=== PATIENT | female | born 1965 | race Caucasian/White ===

== ENCOUNTER 2016-11-21 13:07 | Emergency (ER) | payer SELFPAY ==
[~2016-11-21 13:07] MED LIST: Sodium Chloride 0.9% 100 ML BAG ONE
[2016-11-21] MEDS ORDERED: methylPREDNISolone Sod Succ/PF 125 MG/2 ML VIAL ONE (14:01)
[2016-11-21] MEDS ORDERED: Dexamethasone 10 MG/ML VIAL ONE (14:01)
[2016-11-21] MEDS ORDERED: Clindamycin/D5W 600 mg/50 ml Premix Bag ONE (14:01)
[2016-11-21 14:11] LABS: #Basophils 0.1 thou/uL (0.0-0.2); #Lymphocytes 3.4 thou/uL (1.20-3.40); #Monocytes 0.6 thou/uL (0.11-0.59); #Neutrophils 4.9 thou/uL (1.40-6.50); %Basophils 1.4 % (0.0-1.0); %Eosinophils 0.5 % (0.0-10.0); %Lymphocytes 37.5 % (21.0-51.0); %Monocytes 6.1 % (0.0-10.0); %Neutrophils 54.5 % (42.0-75.0); Hemoglobin 16.1 g/dL (12.0-16.0); Mean Corpuscular HGB CONC 34.2 g/dL (32.0-36.0); Mean Corpuscular Hemoglobin 29.8 pg (27.0-31.0); Mean Corpuscular Volume 87.2 fl (81.0-99.0); Mean Platelet Volume 7.9 fL (7.4-10.4); Platelet Count 356 thou/uL (130-400); RBC Distribution Width 11.2 % (11.5-14.5)
[2016-11-21 14:23] LABS: ALT (SGPT) 19 U/L (0-55); AST (SGOT) 15 U/L (5-34); Albumin 4.3 g/dL (3.5-5.0); Alkaline Phosphatase 95 U/L (40-150); Anion Gap 14 mmol/L (10-20); BUN (Urea Nitrogen) 16 mg/dL (9.8-20.1); Bilirubin, Total 1.1 mg/dL (0.2-1.2); CK (CPK) 107 U/L (29-168); Calc. Creatinine Clearance 0 mL/min (70-130); Carbon Dioxide 27 mmol/L (22-29); Chloride 103 mmol/L (98-107); Estimated GFR-MDRD 66; Globulin 3.4 g/dL (2.4-3.5); Glucose 122 mg/dL (70-105); Potassium 3.3 mmol/L (3.5-5.1); Protein, Total 7.7 g/dL (6.0-8.3); Sodium 141 mmol/L (136-145)
[2016-11-21 14:24] LABS: CKMB 1.1 ng/mL (0-6.6)
--- NOTE | 2016-11-21 16:05 | RAD ---
PA AND LATERAL VIEWS OF THE CHEST 11/21/16 HISTORY: Cough. COMPARISON: 11/21/13 FINDINGS: The heart size is normal. The lungs are expanded without focal areas of consolidation, pneumothorax or pleural effusions. Surgical hardware in the cervical spine on the right is again seen. IMPRESSION: No radiographic evidence of acute cardiopulmonary process. POS: [facility]
== END 2016-11-21 16:53 | disposition home or self-care (01) ==
LOC: MADERS 13:07
DX: J20.9 Acute bronchitis, unspecified (principal); E03.9 Hypothyroidism, unspecified; E78.5 Hyperlipidemia, unspecified; E78.00 Pure hypercholesterolemia, unspecified; I10 Essential (primary) hypertension; Z87.442 Personal history of urinary calculi; Z79.82 Long term (current) use of aspirin; Z79.899 Other long term (current) drug therapy
CPT/HCPCS: 71020; 80053; 82550; 82553; 83880; 84484; 85025; 85379; 87040; 93005; 94640; 94760; 96365; 96375; J1100; J2930; J3490; J7050; J7620

== ENCOUNTER 2016-12-09 16:01 | Emergency (ER) | payer SELFPAY ==
[2016-12-09 16:59] LABS: #Basophils 0.1 thou/uL (0.0-0.2); #Eosinphils 0.1 thou/uL (0.0-0.7); #Lymphocytes 2.5 thou/uL (1.20-3.40); #Monocytes 0.5 thou/uL (0.11-0.59); #Neutrophils 3.5 thou/uL (1.40-6.50); %Basophils 1.4 % (0.0-1.0); %Eosinophils 1.4 % (0.0-10.0); %Lymphocytes 37.6 % (21.0-51.0); %Monocytes 7.1 % (0.0-10.0); %Neutrophils 52.5 % (42.0-75.0); Hemoglobin 12.9 g/dL (12.0-16.0); Mean Corpuscular HGB CONC 33.8 g/dL (32.0-36.0); Mean Corpuscular Hemoglobin 30.8 pg (27.0-31.0); Mean Corpuscular Volume 91.1 fl (81.0-99.0); Mean Platelet Volume 8.2 fL (7.4-10.4); Platelet Count 237 thou/uL (130-400); RBC Distribution Width 12.1 % (11.5-14.5); White Blood Cell (WBC) Count 6.7 thou/uL (4.8-10.8)
[2016-12-09 17:20] LABS: ALT (SGPT) 23 U/L (0-55); AST (SGOT) 20 U/L (5-34); Albumin 3.8 g/dL (3.5-5.0); Alkaline Phosphatase 76 U/L (40-150); Anion Gap 14 mmol/L (10-20); BUN (Urea Nitrogen) 15 mg/dL (9.8-20.1); Bilirubin, Total 0.5 mg/dL (0.2-1.2); Calc. Creatinine Clearance 0 mL/min (70-130); Calcium 9.2 mg/dL (7.8-10.44); Carbon Dioxide 24 mmol/L (22-29); Chloride 108 mmol/L (98-107); Estimated GFR-MDRD 72; Globulin 2.6 g/dL (2.4-3.5); Glucose 84 mg/dL (70-105); Potassium 3.6 mmol/L (3.5-5.1); Protein, Total 6.4 g/dL (6.0-8.3); Sodium 142 mmol/L (136-145)
[2016-12-09 17:21] LABS: CKMB 1.1 ng/mL (0-6.6); Troponin I Less than 0.010 ng/mL (< 0.028)
--- NOTE | 2016-12-09 17:26 | RAD ---
PORTABLE CHEST ONE VIEW: Date: 12-09-16 Time: 4:42 p.m. History: Chest pain. FINDINGS: Comparison is made with exam of 11-21-16. The heart size appears magnified due to projection. The lungs are well expanded without focal areas of consolidation, pneumothorax, don edema, or pleural effusions. IMPRESSION: No acute process. POS: [facility]
[2016-12-09 17:33] LABS: Bilirubin Negative (Negative); Blood, Urine Negative (Negative); Clarity Clear (Clear); Glucose, Urine (Dipstick) Negative (Negative); Leukocyte Negative (Negative); Nitrite Negative (Negative); Protein, Urine (Dipstick) Negative (Neg-Trace); Specific Gravity, Urine 1.025 (1.005-1.030); Urobilinogen 0.2 mg/dL (0.2-1.0)
[2016-12-09 17:34] LABS: Free T4 (Free Thyroxine) 0.86 ng/dL (0.70-1.48); Thyroid Stimulating Hormone 2.4366 uIU/mL (0.35-4.94)
[2016-12-09] MEDS ORDERED: Furosemide 40 MG/4 ML VIAL ONE (18:17)
== END 2016-12-09 19:25 | disposition home or self-care (01) ==
LOC: MADERS 16:01
DX: R60.0 Localized edema (principal); R79.89 Other specified abnormal findings of blood chemistry; E03.9 Hypothyroidism, unspecified; E78.5 Hyperlipidemia, unspecified; I10 Essential (primary) hypertension; E66.9 Obesity, unspecified
CPT/HCPCS: 36415; 71010; 80053; 81003; 82553; 83880; 84439; 84443; 84484; 85025; 93005; 96374; J1940

== ENCOUNTER 2017-01-12 03:10 | Emergency (ER) | payer OTHER ==
[2017-01-12] MEDS ORDERED: Dexamethasone 10 MG/ML VIAL ONE (03:48)
[2017-01-12] MEDS ORDERED: Azithromycin 500 MG VIAL ONE (03:48)
[2017-01-12] MEDS ORDERED: Ketorolac Tromethamine 30 MG/ML VIAL ONE (03:48)
[2017-01-12] MEDS ORDERED: Ondansetron HCl/PF 4 MG/2 ML Vial ONE (03:48)
[2017-01-12] MEDS ORDERED: methylPREDNISolone Sod Succ/PF 125 MG/2 ML VIAL ONE (03:49)
[2017-01-12 04:06] LABS: #Basophils 0.1 thou/uL (0.0-0.2); #Eosinphils 0.1 thou/uL (0.0-0.7); #Lymphocytes 2.1 thou/uL (1.20-3.40); #Monocytes 0.6 thou/uL (0.11-0.59); %Basophils 1.1 % (0.0-1.0); %Lymphocytes 17.6 % (21.0-51.0); %Monocytes 5.1 % (0.0-10.0); %Neutrophils 75.2 % (42.0-75.0); Mean Corpuscular HGB CONC 35.2 g/dL (32.0-36.0); Mean Corpuscular Hemoglobin 31.2 pg (27.0-31.0); Mean Corpuscular Volume 88.8 fl (81.0-99.0); Mean Platelet Volume 8.2 fL (7.4-10.4); Platelet Count 259 thou/uL (130-400); RBC Distribution Width 11.6 % (11.5-14.5); Red Blood Cell (RBC) Count 4.49 mill/uL (4.20-5.40); White Blood Cell (WBC) Count 11.9 thou/uL (4.8-10.8)
[2017-01-12 04:14] LABS: ALT (SGPT) 69 U/L (8-55); AST (SGOT) 53 U/L (5-34); Albumin 4.1 g/dL (3.5-5.0); Alkaline Phosphatase 118 U/L (40-150); Anion Gap 16 mmol/L (10-20); BUN (Urea Nitrogen) 10 mg/dL (9.8-20.1); Bilirubin, Total 0.9 mg/dL (0.2-1.2); Calc. Creatinine Clearance 0 mL/min (70-130); Carbon Dioxide 24 mmol/L (22-29); Chloride 106 mmol/L (98-107); Estimated GFR-MDRD 80; Globulin 3.1 g/dL (2.4-3.5); Glucose 114 mg/dL (70-105); Potassium 3.7 mmol/L (3.5-5.1); Protein, Total 7.2 g/dL (6.0-8.3); Sodium 142 mmol/L (136-145)
[2017-01-12 04:21] LABS: Clarity Cloudy (Clear); Glucose, Urine (Dipstick) Negative (Negative); Leukocyte Trace (Negative); Nitrite Positive (Negative); Protein, Urine (Dipstick) Trace mg/dL (Neg-Trace); pH, Urine 7.5 (5.0-9.0)
[2017-01-12 04:22] LABS: Bacteria/HPF 4+ HPF (None Seen); Bilirubin Negative (Negative); Blood, Urine Negative (Negative); RBC/HPF 0-3 HPF (0-3); Renal Epithelial 0-3 HPF (0-3); Transitional Epithelial 0-3 HPF (0-3); WBC/HPF 21-50 HPF (0-3)
[2017-01-12] MEDS ORDERED: Cipro 250 MG TAB ONE (05:00)
[2017-01-12] MEDS ORDERED: Sodium Chloride 0.9% 1,000 ML BAG ONE (07:41)
--- NOTE | 2017-01-12 08:56 | RAD ---
CHEST 1 VIEW: HISTORY: Cough. COMPARISON: 12/11/16. FINDINGS: The cardiac silhouette is magnified by projection. Pulmonary vasculature is unremarkable. Mediasti num is midline. There is no lobar consolidation or evidence of pneumothorax. Old left clavicular f racture is apparent. IMPRESSION: No active cardiopulmonary abnormalities are demonstrated. POS: [facility]
== END 2017-01-12 05:15 | disposition home or self-care (01) ==
LOC: MADERS 03:10
DX: J20.9 Acute bronchitis, unspecified (principal); N39.0 Urinary tract infection, site not specified; I10 Essential (primary) hypertension; E78.4 Other hyperlipidemia; Z79.899 Other long term (current) drug therapy; Z79.82 Long term (current) use of aspirin
CPT/HCPCS: 36415; 71020; 80053; 81001; 83880; 85025; 87077; 87081; 87086; 87186; 87430; 94640; 94760; 96365; 96375; J0456; J1100; J1885; J2405; J2930; J7050; J7620

== ENCOUNTER 2017-09-21 09:46 | Emergency (ER) | payer SELFPAY ==
[2017-09-21] MEDS ORDERED: Azithromycin 250 MG TAB ONE (11:27)
[2017-09-21] MEDS ORDERED: Naproxen 500 MG TAB ONE (11:27)
[2017-09-21] MEDS ORDERED: Benzonatate 100 MG CAP ONE (11:27)
== END 2017-09-21 11:44 | disposition home or self-care (01) ==
LOC: MADERS 09:46
DX: J02.9 Acute pharyngitis, unspecified (principal); I25.10 Atherosclerotic heart disease of native coronary artery without angina pectoris; J45.909 Unspecified asthma, uncomplicated; E03.9 Hypothyroidism, unspecified; E78.5 Hyperlipidemia, unspecified; I11.0 Hypertensive heart disease with heart failure; I50.9 Heart failure, unspecified; E66.9 Obesity, unspecified; Z79.899 Other long term (current) drug therapy; Z79.82 Long term (current) use of aspirin
CPT/HCPCS: 87081; 87430; 87804; 99283

== ENCOUNTER 2017-10-31 08:43 | Emergency (ER) | payer SELFPAY ==
[2017-10-31] MEDS ORDERED: Aspirin 325 MG TAB ONE (09:07)
[2017-10-31] MEDS ORDERED: Nitroglycerin 2% Ointment 1 INCH/1 GM Packet ONE (09:07)
[2017-10-31 09:16] LABS: #Basophils 0.1 thou/uL (0.0-0.2); #Eosinphils 0.1 thou/uL (0.0-0.7); #Lymphocytes 2.6 thou/uL (1.20-3.40); #Monocytes 0.3 thou/uL (0.11-0.59); #Neutrophils 3.5 thou/uL (1.40-6.50); %Basophils 1.8 % (0.0-1.0); %Eosinophils 1.5 % (0.0-10.0); %Lymphocytes 39.1 % (21.0-51.0); %Monocytes 5.2 % (0.0-10.0); %Neutrophils 52.4 % (42.0-75.0); Hemoglobin 14.4 g/dL (12.0-16.0); Mean Corpuscular HGB CONC 32.8 g/dL (32.0-36.0); Mean Corpuscular Hemoglobin 29.1 pg (27.0-31.0); Mean Corpuscular Volume 90.7 fL (81.0-99.0); Mean Platelet Volume 7.7 fL (7.4-10.4); Platelet Count 316 thou/uL (130-400); RBC Distribution Width 11.8 % (11.5-14.5); Red Blood Cell (RBC) Count 4.85 mill/uL (4.20-5.40); White Blood Cell (WBC) Count 6.7 thou/uL (4.8-10.8)
--- NOTE | 2017-10-31 09:22 | RAD ---
FRONTAL VIEW CHEST: Comparison: 09-14-17 Indication: Chest pain. FINDINGS: There is accentuation of cardiac silhouette by portable technique. No lobar consolidation or effusion . Mild prominence of central pulmonary vasculature is seen. There is post-surgical change overlying t he neck. IMPRESSION: Prominent cardiac silhouette and slight prominence of central pulmonary vasculature. Correlate for fl uid status. POS: [facility]
[2017-10-31 09:27] LABS: ALT (SGPT) 29 U/L (8-55); AST (SGOT) 19 U/L (5-34); Albumin 4.2 g/dL (3.5-5.0); Alkaline Phosphatase 102 U/L (40-150); Anion Gap 15 mmol/L (10-20); BUN (Urea Nitrogen) 16 mg/dL (9.8-20.1); Bilirubin, Total 0.6 mg/dL (0.2-1.2); Calc. Creatinine Clearance 0 mL/min (70-130); Calcium 9.2 mg/dL (7.8-10.44); Carbon Dioxide 25 mmol/L (22-29); Chloride 107 mmol/L (98-107); Estimated GFR-MDRD 75; Globulin 2.9 g/dL (2.4-3.5); Glucose 118 mg/dL (70-105); Magnesium 2.4 mg/dL (1.6-2.6); Protein, Total 7.1 g/dL (6.0-8.3); Sodium 143 mmol/L (136-145)
[2017-10-31 09:43] LABS: CKMB 0.9 ng/mL (0-6.6); Troponin I Less than 0.010 ng/mL (< 0.028)
[2017-10-31] MEDS ORDERED: MORPHINE 10 MG/ML SYRINGE ONE (10:02)
== END 2017-10-31 10:20 | disposition short-term general hospital (02) ==
LOC: MADERS 08:43
DX: R07.9 Chest pain, unspecified (principal); E66.9 Obesity, unspecified; E78.5 Hyperlipidemia, unspecified; E03.9 Hypothyroidism, unspecified; J44.9 Chronic obstructive pulmonary disease, unspecified; I11.0 Hypertensive heart disease with heart failure; I50.9 Heart failure, unspecified; I25.10 Atherosclerotic heart disease of native coronary artery without angina pectoris; Z79.82 Long term (current) use of aspirin; Z79.899 Other long term (current) drug therapy; Z87.442 Personal history of urinary calculi
CPT/HCPCS: 71045; 80053; 82553; 83735; 83880; 84484; 85025; 85730; 93005; 96374; J2270

== ENCOUNTER 2018-03-09 01:20 | Emergency (ER) | payer SELFPAY ==
[2018-03-09] MEDS ORDERED: traMADol HCl 50 MG TAB ONE (02:07)
--- NOTE | 2018-03-09 10:55 | RAD ---
CHEST 1 VIEW LEFT RIBS 3 VIEWS: HISTORY: Pain. FINDINGS: ONE VIEW CHEST: Normal cervical spine. Pulmonary vessels and hilum are normal. Costophrenic angles are clear. No c onsolidation or mass. No pneumothorax or osseous abnormalities. LEFT RIB SERIES: No fracture. No cortical irregularity or periosteal reaction. IMPRESSION: 1. No acute cardiopulmonary process. 2. No evidence of a left rib fracture. POS: [facility]
== END 2018-03-09 02:14 | disposition home or self-care (01) ==
LOC: MADERS 01:20
DX: S29.011A Strain of muscle and tendon of front wall of thorax, initial encounter (principal); I11.0 Hypertensive heart disease with heart failure; I50.9 Heart failure, unspecified; I25.10 Atherosclerotic heart disease of native coronary artery without angina pectoris; J44.9 Chronic obstructive pulmonary disease, unspecified; E03.9 Hypothyroidism, unspecified; E78.5 Hyperlipidemia, unspecified; E66.9 Obesity, unspecified; F32.9 Major depressive disorder, single episode, unspecified; Z79.82 Long term (current) use of aspirin; Z79.899 Other long term (current) drug therapy; X50.9XXA Other and unspecified overexertion or strenuous movements or postures, initial encounter

== ENCOUNTER 2018-05-15 13:27 | Emergency (ER) | payer SELFPAY ==
[2018-05-15] MEDS ORDERED: methylPREDNISolone Sod Succ/PF 125 MG/2 ML VIAL ONE (13:48)
--- NOTE | 2018-05-15 13:54 | RAD ---
PORTABLE AP CHEST XRAY: DATE: 05/15/18. HISTORY: Cough. COMPARISON: 03/09/18. FINDINGS: Cardiac silhouette and pulmonary vasculature are within normal limits. The lungs are clear. There i s a remote healed fracture involving the middle 1/3 left clavicle. Mild degenerative changes are see n in the thoracic spine. IMPRESSION: 1. No acute cardiopulmonary process. 2. Mild elevation of the right hemidiaphragm. 3. Remote healed left clavicle fracture. POS: [facility]
[2018-05-15] MEDS ORDERED: Albuterol Sulfate 2.5 mg/0.5 ml Neb ONE (14:39)
== END 2018-05-15 15:45 | disposition home or self-care (01) ==
LOC: MADERS 13:27
DX: J44.1 Chronic obstructive pulmonary disease with (acute) exacerbation (principal); I25.10 Atherosclerotic heart disease of native coronary artery without angina pectoris; I11.0 Hypertensive heart disease with heart failure; I50.9 Heart failure, unspecified; E03.9 Hypothyroidism, unspecified; E78.5 Hyperlipidemia, unspecified; F32.9 Major depressive disorder, single episode, unspecified; Z79.899 Other long term (current) drug therapy
CPT/HCPCS: 71045; 96372; J2930; J7611; J7620

== ENCOUNTER 2018-07-25 09:57 | Emergency (ER) | payer SELFPAY ==
[2018-07-25] MEDS ORDERED: Acetaminophen 500 MG TAB ONE (10:58)
[2018-07-25] MEDS ORDERED: methylPREDNISolone Sod Succ/PF 125 MG/2 ML VIAL ONE (10:58)
[2018-07-25] MEDS ORDERED: Sterile Water 0 ML ONE (10:59)
[2018-07-25] MEDS ORDERED: Sterile Water 10 ML ONE (11:01)
--- NOTE | 2018-07-25 11:25 | RAD ---
PA AND LATERAL VIEWS CHEST: HISTORY: Cough. FINDINGS: Comparison is made with the exam of 05/15/2018. The heart size is borderline. Elevation of the right hemidiaphragm is again seen. The lungs are exp anded without focal areas of consolidation, pneumothorax, don pulmonary edema, or pleural effusions . There are degenerative changes in the spine. Old healed fracture of the shaft of the left clavicl e is again seen. IMPRESSION: Stable exam. No acute process. POS: [facility]
[2018-07-25] MEDS ORDERED: Albuterol Sulfate 2.5 mg/0.5 ml Neb ONE (12:40)
== END 2018-07-25 14:59 | disposition home or self-care (01) ==
LOC: MADERS 09:57
DX: J44.1 Chronic obstructive pulmonary disease with (acute) exacerbation (principal); J04.0 Acute laryngitis; I25.10 Atherosclerotic heart disease of native coronary artery without angina pectoris; I11.0 Hypertensive heart disease with heart failure; I50.9 Heart failure, unspecified; E03.9 Hypothyroidism, unspecified; E78.5 Hyperlipidemia, unspecified; E66.9 Obesity, unspecified; F32.9 Major depressive disorder, single episode, unspecified; Z79.899 Other long term (current) drug therapy; Z79.82 Long term (current) use of aspirin
CPT/HCPCS: 71046; 87804; 96372; A4216; J2930; J7611; J7620

== ENCOUNTER 2018-07-25 18:25 | Emergency (ER) | payer SELFPAY ==
[2018-07-25] MEDS ORDERED: Albuterol Sulfate 2.5 mg/0.5 ml Neb ONE (18:49)
[2018-07-25] MEDS ORDERED: Ondansetron PF 4 MG/2 ML Vial ONE (18:49)
[2018-07-25 19:24] LABS: #Basophils 0.1 thou/uL (0.0-0.2); #Lymphocytes 0.6 thou/uL (1.20-3.40); #Neutrophils 7.6 thou/uL (1.40-6.50); %Basophils 0.8 % (0.0-1.0); %Eosinophils 0.1 % (0.0-10.0); %Lymphocytes 7.6 % (21.0-51.0); %Monocytes 0.4 % (0.0-10.0); Hemoglobin 13.8 g/dL (12.0-16.0); Mean Corpuscular HGB CONC 34.4 g/dL (32.0-36.0); Mean Corpuscular Hemoglobin 31.1 pg (27.0-31.0); Mean Corpuscular Volume 90.3 fL (78.0-98.0); Mean Platelet Volume 8.3 fL (7.4-10.4); Platelet Count 288 thou/uL (130-400); RBC Distribution Width 12.2 % (11.5-14.5); Red Blood Cell (RBC) Count 4.45 mill/uL (4.20-5.40); White Blood Cell (WBC) Count 8.3 thou/uL (4.8-10.8)
[2018-07-25 19:31] LABS: ALT (SGPT) 45 U/L (8-55); AST (SGOT) 33 U/L (5-34); Albumin 4.1 g/dL (3.5-5.0); Alkaline Phosphatase 121 U/L (40-150); Anion Gap 17 mmol/L (10-20); BUN (Urea Nitrogen) 14 mg/dL (9.8-20.1); Bilirubin, Total 0.4 mg/dL (0.2-1.2); Calc. Creatinine Clearance 0 mL/min (70-130); Calcium 8.9 mg/dL (7.8-10.44); Carbon Dioxide 18 mmol/L (22-29); Chloride 112 mmol/L (98-107); Estimated GFR-MDRD 73; Glucose 180 mg/dL (70-105); Potassium 3.7 mmol/L (3.5-5.1); Protein, Total 7.1 g/dL (6.0-8.3); Sodium 143 mmol/L (136-145)
[2018-07-25 19:33] LABS: CKMB 1.1 ng/mL (0-6.6); Troponin I Less than 0.010 ng/mL (< 0.028)
[2018-07-25] MEDS ORDERED: Magnesium Sulfate 2 GM/NS 0.9% 50 ML BAG ONE (19:40)
== END 2018-07-25 20:53 | disposition short-term general hospital (02) ==
LOC: MADERS 18:25
DX: J44.1 Chronic obstructive pulmonary disease with (acute) exacerbation (principal); R11.2 Nausea with vomiting, unspecified; I25.10 Atherosclerotic heart disease of native coronary artery without angina pectoris; E03.9 Hypothyroidism, unspecified; E78.5 Hyperlipidemia, unspecified; I11.0 Hypertensive heart disease with heart failure; I50.9 Heart failure, unspecified; E66.9 Obesity, unspecified; F32.9 Major depressive disorder, single episode, unspecified; Z79.899 Other long term (current) drug therapy; Z79.82 Long term (current) use of aspirin
CPT/HCPCS: 80053; 82553; 84484; 85025; 93005; 94760; 96361; 96374; 96375; J2405; J3475; J7611